=== PATIENT | female | born 1945 | race Caucasian/White ===

== ENCOUNTER 2017-09-19 17:59 | Emergency (ER) | payer BC, MEDICARE ==
[2017-09-19 18:28] VITALS: BP 162/49
--- NOTE | 2017-09-19 20:19 | EDM.PDOC ---
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 The patient reports she believes she fell Wednesday or Wednesday and has had increased pain and swelling in the right knee since that time. The patient reports that she has been walking on the knee, has not taken anything for her pain and has not been seen for x-rays at this time. The patient reports no additional injuries from the fall. The patient report she did have a valve replacement within the past year but no additional medical concerns. 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 Right Knee Pain Score (Numeric/FACES): 9 - Related Data Allergies Allergy/AdvReac Type Severity Reaction Status Date / Time ciprofloxacin Allergy Hives Verified 07/12/15 08:07 iodine Allergy Shortness Verified 07/12/15 08:07 of Breath nitrofurantoin Allergy Hives Verified 07/12/15 08:07 Penicillins Allergy Hives Verified 07/12/15 08:07 sulfamethoxazole Allergy Hives Verified 07/12/15 08:07 [From Bactrim] trimethoprim [From Bactrim] Allergy Hives Verified 07/12/15 08:07 Home Meds: Home Meds Aspirin [Adult Low Dose Aspirin EC] 1 tab PO DAILY 09/27/13 [History] Gabapentin [Neurontin] 600 mg PO TID 09/27/13 [History] Hydrochlorothiazide 25 mg PO DAILY 09/27/13 [History] Metoprolol Succinate [Toprol XL] 50 mg PO DAILY 09/27/13 [History] Multivitamin [Multi-Vitamin Daily] 1 each PO DAILY 09/27/13 [History] PARoxetine [Paxil] 20 mg PO DAILY 09/27/13 [History] Simvastatin [Zocor] 40 mg PO DAILY 09/27/13 [History] metFORMIN [metFORMIN XR] 500 mg PO DAILY 09/27/13 [History] Mirabegron [Myrbetriq] 50 mg PO DAILY 09/19/17 [History] Nitroglycerin [Nitrostat] 0.4 mg PO PRN 09/19/17 [History] Past Medical History HEENT History: Reports: Impaired Vision, Other (See Below) Other HEENT History: anisocoria; WEARS CORRECTIVE LENSES Cardiovascular History: Reports: High Cholesterol, Hypertension, Other (See Below) Other Cardiovascular History: aortic stenosis, carotoid stenosis Respiratory History: Reports: None Gastrointestinal History: Reports: Diverticulosis, Hemorrhoids Genitourinary History: Reports: Renal Calculus, UTI, Recurrent, Other (See Below ) Other Genitourinary History: nephrolithiasis; 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: Musculoskeletal History: Reports: Osteoarthritis Other Musculoskeletal History: herniated lumbar disc, lumbar spondylolysis, lumbar stenosis Neurological History: Reports: None Psychiatric History: Reports: Anxiety, Depression Endocrine/Metabolic History: Reports: Diabetes, Type II, Osteoporosis Hematologic History: Reports: Blood Transfusion(s) Immunologic History: Reports: None Oncologic (Cancer) History: Reports: None Dermatologic History: Reports: None - Past Surgical History Head Surgeries/Procedures: Reports: None Cardiovascular Surgical History: Reports: Coronary Artery Bypass Respiratory Surgical History: Reports: None GI Surgical History: Reports: Cholecystectomy, Colonoscopy, Hernia Repair/Other Female Surgical History: Reports: Breast Biopsy, Section, Hysterectomy, Tubal Ligation, Other (See Below) Neurological Surgical History: Reports: None Musculoskeletal Surgical History: Reports: Other (See Below) Other Musculoskeletal Surgeries/Procedures:: left ankle, right elbow Oncologic Surgical History: Reports: None Social & Family History - Tobacco Use Smoking Status *Q: Never Smoker Years of Tobacco use: 30 Packs/Tins Daily: 1 Month/Year Tobacco Last Used: 09/03/73 Second Hand Smoke Exposure: No - Caffeine Use Caffeine Use: Reports: Coffee - Recreational Drug Use Recreational Drug Use: No Review of Systems - Review of Systems Review Of Systems: ROS reveals no pertinent complaints other than HPI. ED EXAM, GENERAL - Physical Exam Exam: See Below Exam Limited By: No Limitations General Appearance: Alert, WD/WN, Moderate Distress Eye Exam: Bilateral Eye: EOMI, Normal Inspection, PERRL Ears: Normal External Exam, Normal Canal, Hearing Grossly Normal, Normal TMs Nose: Normal Inspection, Normal Mucosa, No Blood Throat/Mouth: Normal Inspection, Normal Lips, Normal Teeth, Normal Gums, Normal Oropharynx, Normal Voice, No Airway Compromise Head: Atraumatic, Normocephalic Neck: Normal Inspection, Supple, Non-Tender, Full Range of Motion Respiratory/Chest: No Respiratory Distress, Lungs Clear, Normal Breath Sounds, No Accessory Muscle Use, Chest Non-Tender Cardiovascular: Normal Peripheral Pulses, Regular Rate, Rhythm, No Edema, No Gallop, No JVD, No Rub, Systolic Murmur GI/Abdominal: Normal Bowel Sounds, Soft, Non-Tender, No Organomegaly, No Distention, No Abnormal Bruit, No Mass (Female) Exam: Deferred Rectal (Female) Exam: Deferred Back Exam: Normal Inspection, Full Range of Motion, NT Extremities: No Pedal Edema, Normal Capillary Refill, Leg Pain (right knee swelling), Limited Range of Motion Neurological: Alert, Oriented, CN II-XII Intact, Normal Cognition, Normal Gait, Normal Reflexes, No Motor/Sensory Deficits Psychiatric: Normal Affect, Normal Mood Skin Exam: Ecchymosis (right knee) Lymphatic: No Adenopathy Course - Vital Signs Last Recorded V/S: Last Vital Signs Temp 36.3 C 09/19/17 18:26 Pulse 67 09/19/17 18:26 Resp 16 09/19/17 18:26 BP 162/49 H 09/19/17 18:26 Pulse Ox 94 L 09/19/17 18:26 Departure - Departure Time of Disposition: 21:11 Disposition: Home, Self-Care 01 Condition: Fair Clinical Impression: Contusion of left knee Qualifiers: Encounter type: initial encounter Qualified Code(s): S80.02XA - Contusion of left knee, initial encounter - Discharge Information Instructions: Contusion Referrals: Ralph Sellers MD [Primary Care Provider] - Forms: ED Department Discharge Care Plan Goals: The patient was advised of the examination and x-ray results during the visit. The patient was given an EVA wrap for compression to her injured knee. The patient was encouraged to rest, ice and elevate her knee. If the patient has any additional symptoms or concerns, the patient should follow-up with her primary care facility or return to the emergency department.
== END 2017-09-19 21:26 | disposition home or self-care (01) ==
LOC: DL.ED 17:59
DX: S80.02XA Contusion of left knee, initial encounter (principal); E78.00 Pure hypercholesterolemia, unspecified; I10 Essential (primary) hypertension; E11.9 Type 2 diabetes mellitus without complications; Z88.1 Allergy status to other antibiotic agents; Z88.0 Allergy status to penicillin; Z88.2 Allergy status to sulfonamides; Z91.048 Other nonmedicinal substance allergy status; Z79.82 Long term (current) use of aspirin; Z79.899 Other long term (current) drug therapy; Z79.84 Long term (current) use of oral hypoglycemic drugs; W19.XXXA Unspecified fall, initial encounter
CPT/HCPCS: 73562-RT; 99283

== ENCOUNTER 2017-11-23 16:58 | Emergency (ER) | payer BC, MEDICARE ==
[2017-11-23] MEDS ORDERED: Sodium Chloride 0.9% 10 ML Syringe FLUSH PRN (17:06)
--- NOTE | 2017-11-23 17:06 | EDM.PDOC ---
ED HPI GENERAL MEDICAL PROBLEM - General Chief Complaint: Chest Pain Stated Complaint: HEART ATTACK Time Seen by Provider: 11/23/17 17:06 Source of Information: Reports: Patient, Old Records, RN, RN Notes Reviewed History Limitations: Reports: No Limitations - History of Present Illness INITIAL COMMENTS - FREE TEXT/NARRATIVE: Pt presents to ER with c/o "I want to make sure I'm not having a heart attack". Pt denies any chest pain, but states that she became concerned due to Rt arm pain that has worsened over the last couple of days. The pain began in the Rt elbow, and radiates up and down from the elbow into the forearm and up the arm to the shoulder. She denies any shortness of breath, palpitations, edema, orthopnea, neck pain, or jaw pain. Onset: Gradual Duration: Day(s): (1-2), Constant Location: Reports: Upper Extremity, Right Quality: Reports: Ache, Throbbing Severity: Moderate Improves with: Reports: Rest Worsens with: Reports: Movement (of elbow) Associated Symptoms: Reports: No Other Symptoms Right Elbow Pain Score (Numeric/FACES): 7 - Related Data Allergies Allergy/AdvReac Type Severity Reaction Status Date / Time ciprofloxacin Allergy Hives Verified 07/12/15 08:07 iodine Allergy Shortness Verified 07/12/15 08:07 of Breath nitrofurantoin Allergy Hives Verified 07/12/15 08:07 Penicillins Allergy Hives Verified 07/12/15 08:07 sulfamethoxazole Allergy Hives Verified 07/12/15 08:07 [From Bactrim] trimethoprim [From Bactrim] Allergy Hives Verified 07/12/15 08:07 Home Meds: Home Meds Aspirin [Adult Low Dose Aspirin EC] 1 tab PO DAILY 09/27/13 [History] Gabapentin [Neurontin] 600 mg PO TID 09/27/13 [History] Hydrochlorothiazide 25 mg PO DAILY 09/27/13 [History] Metoprolol Succinate [Toprol XL] 50 mg PO DAILY 09/27/13 [History] Multivitamin [Multi-Vitamin Daily] 1 each PO DAILY 09/27/13 [History] PARoxetine [Paxil] 20 mg PO DAILY 09/27/13 [History] Simvastatin [Zocor] 40 mg PO DAILY 09/27/13 [History] metFORMIN [metFORMIN XR] 500 mg PO DAILY 09/27/13 [History] Mirabegron [Myrbetriq] 50 mg PO DAILY 09/19/17 [History] Nitroglycerin [Nitrostat] 0.4 mg PO PRN 09/19/17 [History] Past Medical History HEENT History: Reports: Impaired Vision, Other (See Below) Other HEENT History: anisocoria; WEARS CORRECTIVE LENSES Cardiovascular History: Reports: High Cholesterol, Hypertension, Other (See Below) Other Cardiovascular History: aortic stenosis, carotoid stenosis Respiratory History: Reports: None Gastrointestinal History: Reports: Diverticulosis, Hemorrhoids Genitourinary History: Reports: Renal Calculus, UTI, Recurrent, Other (See Below ) Other Genitourinary History: nephrolithiasis; 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: Musculoskeletal History: Reports: Osteoarthritis Other Musculoskeletal History: herniated lumbar disc, lumbar spondylolysis, lumbar stenosis Neurological History: Reports: None Psychiatric History: Reports: Anxiety, Depression Endocrine/Metabolic History: Reports: Diabetes, Type II, Osteoporosis Hematologic History: Reports: Blood Transfusion(s) Immunologic History: Reports: None Oncologic (Cancer) History: Reports: None Dermatologic History: Reports: None - Past Surgical History Head Surgeries/Procedures: Reports: None Cardiovascular Surgical History: Reports: Coronary Artery Bypass Respiratory Surgical History: Reports: None GI Surgical History: Reports: Cholecystectomy, Colonoscopy, Hernia Repair/Other Female Surgical History: Reports: Breast Biopsy, Section, Hysterectomy, Tubal Ligation, Other (See Below) Neurological Surgical History: Reports: None Musculoskeletal Surgical History: Reports: Other (See Below) Other Musculoskeletal Surgeries/Procedures:: left ankle, right elbow Oncologic Surgical History: Reports: None Social & Family History - Family History Family Medical History: Noncontributory - Caffeine Use Caffeine Use: Reports: Coffee - Living Situation & Occupation Living situation: Reports: , with Spouse Occupation: Retired ED ROS GENERAL - Review of Systems Review Of Systems: ROS reveals no pertinent complaints other than HPI. ED EXAM, GENERAL - Physical Exam Exam: See Below Exam Limited By: No Limitations General Appearance: Alert, WD/WN, No Apparent Distress Ears: Normal External Exam, Hearing Grossly Normal Nose: Normal Inspection, Normal Mucosa, No Blood Throat/Mouth: Normal Inspection, Normal Voice, No Airway Compromise Head: Atraumatic, Normocephalic Neck: Normal Inspection, Supple, Non-Tender, Full Range of Motion Respiratory/Chest: No Respiratory Distress, Lungs Clear, Normal Breath Sounds, No Accessory Muscle Use, Chest Non-Tender Cardiovascular: Regular Rate, Rhythm, No Edema GI/Abdominal: Normal Bowel Sounds, Soft, Non-Tender, No Distention, No Abnormal Bruit. No: Guarding, Rigid, Splenomegaly (Female) Exam: Deferred Rectal (Female) Exam: Deferred Back Exam: Normal Inspection Extremities: No Pedal Edema, Normal Capillary Refill, Joint Swelling (Rt elbow, with increased warmth, no erythema, no abscess, no sign of injury, old surgical scar), Limited Range of Motion (Rt elbow due to pain). No: Leg Pain Neurological: Alert, Oriented, CN II-XII Intact, Normal Cognition, Normal Gait, No Motor/Sensory Deficits Psychiatric: Normal Affect, Normal Mood Skin Exam: Warm, Dry, Intact, Normal Color, No Rash EKG INTERPRETATION EKG Date: 11/23/17 Time: 17:05 Rhythm: Other (SR) Rate (Beats/Min): 65 [place]: LAD-Left [place] Deviation P-Wave: Present QRS: Other (LVH) ST-T: Normal QT: Normal Comparison: NA - No Prior EKG Course - Vital Signs Last Recorded V/S: Last Vital Signs Temp 36.3 C 11/23/17 17:18 Pulse 66 11/23/17 17:18 Resp 16 11/23/17 17:18 BP 157/78 H 11/23/17 17:18 Pulse Ox 94 L 11/23/17 17:18 - Orders/Labs/Meds Labs: Laboratory Tests 11/23/17 11/23/17 11/23/17 Range/Units 17:18 17:18 17:18 WBC 10.0 (5.0-10.0) 10^3/uL RBC 4.71 (4.2-5.4) 10^6/uL Hgb 13.7 D (12.0-16.0) g/dL Hct 42.0 (37.0-47.0) % MCV 89.2 (80-100) fL MCH 29.1 (27.0-34.0) pg MCHC 32.6 L (33.0-35.0) g/dL Plt Count 135 L D (150-450) 10^3/uL Neut % (Auto) 60.3 (42.2-75.2) % Lymph % (Auto) 24.8 (20.5-50.1) % Evans % (Auto) 12.7 H (2-8) % Eos % (Auto) 1.8 (1.0-3.0) % Baso % (Auto) 0.4 (0.0-1.0) % PT 10.4 (9.0-12.0) SEC INR 1.0 (0.9-1.2) APTT 23.0 (22.0-34.0) SEC Sodium 136 (135-145) mmol/L Potassium 4.8 (3.6-5.0) mmol/L Chloride 101 (101-111) mmol/L Carbon Dioxide 29.0 (21.0-31.0) mmol/L Anion Gap 10.8 BUN 24 H D (7-18) mg/dL Creatinine 0.8 (0.6-1.3) mg/dL Est Cr Clr Drug Dosing 48.67 mL/min Estimated GFR (MDRD) > 60 BUN/Creatinine Ratio 30.00 Glucose 110 H (74-105) mg/dL Uric Acid (2.6-7.2) mg/dL Calcium 9.6 (8.4-10.2) mg/dl Total Bilirubin 1.6 H (0.2-1.0) mg/dL AST 30 (10-42) IU/L ALT 22 (10-60) IU/L Alkaline Phosphatase 57 (42-121) IU/L Troponin I 0.02 (0.00-0.02) ng/ml C-Reactive Protein (0.0-1.3) mg/dL B-Natriuretic Peptide 254 H (0-100) pg/ml Total Protein 7.0 (6.7-8.2) g/dl Albumin 3.7 (3.2-5.5) g/dl Globulin 3.3 Albumin/Globulin Ratio 1.12 Amylase 94 (28-100) U/L Lipase 46 (22-51) U/L 18 18 Range/Units 17:18 17:18 WBC (5.0-10.0) 10^3/uL RBC (4.2-5.4) 10^6/uL Hgb (12.0-16.0) g/dL Hct (37.0-47.0) % MCV (80-100) fL MCH (27.0-34.0) pg MCHC (33.0-35.0) g/dL Plt Count (150-450) 10^3/uL Neut % (Auto) (42.2-75.2) % Lymph % (Auto) (20.5-50.1) % Evans % (Auto) (2-8) % Eos % (Auto) (1.0-3.0) % Baso % (Auto) (0.0-1.0) % PT (9.0-12.0) SEC INR (0.9-1.2) APTT (22.0-34.0) SEC Sodium (135-145) mmol/L Potassium (3.6-5.0) mmol/L Chloride (101-111) mmol/L Carbon Dioxide (21.0-31.0) mmol/L Anion Gap BUN (7-18) mg/dL Creatinine (0.6-1.3) mg/dL Est Cr Clr Drug Dosing mL/min Estimated GFR (MDRD) BUN/Creatinine Ratio Glucose (74-105) mg/dL Uric Acid 7.2 (2.6-7.2) mg/dL Calcium (8.4-10.2) mg/dl Total Bilirubin (0.2-1.0) mg/dL AST (10-42) IU/L ALT (10-60) IU/L Alkaline Phosphatase (42-121) IU/L Troponin I (0.00-0.02) ng/ml C-Reactive Protein 0.5 (0.0-1.3) mg/dL B-Natriuretic Peptide (0-100) pg/ml Total Protein (6.7-8.2) g/dl Albumin (3.2-5.5) g/dl Globulin Albumin/Globulin Ratio Amylase (28-100) U/L Lipase (22-51) U/L Meds: Medications Discontinued Medications Generic Name Dose Route Start Last Admin Trade Name Freq PRN Reason Stop Dose Admin Hydrocodone Bitart/Acetaminophen 1 tab 11/23/17 18:28 11/23/17 18:54 [place] 325-5 Mg PO 11/23/17 18:29 1 tab ONETIME ONE Administration Aspirin 324 mg 11/23/17 17:07 Aspirin PO 11/23/17 17:08 ONETIME ONE Sodium Chloride 10 ml 11/23/17 17:06 11/23/17 18:20 Saline Flush FLUSH 10 ml ASDIRECTED PRN Administration Keep Vein Open - Radiology Interpretation Free Text/Narrative:: CXR: No acute findings per Rad. report. Departure - Departure Time of Disposition: 18:28 Disposition: Home, Self-Care 01 Condition: Good Clinical Impression: Arthritis of right elbow Acute gout of right elbow Qualifiers: Gout etiology: unspecified cause Qualified Code(s): M10.9 - Gout, unspecified Instructions: Low-Purine Eating Plan, Gout, Heat Therapy, [id number] Referrals: Ralph Sellers MD [Primary Care Provider] - Forms: ED Department Discharge Additional Instructions: Rx: [place] 5mg/325mg Rx: Colchicine 0.6mg Use heating pad to right elbow. Follow up in clinic with your doctor in 3 days if not improving.
[2017-11-23] MEDS ORDERED: Aspirin 81 MG Tab.Chew PO ONE (17:07)
[2017-11-23 17:19] VITALS: BP 157/78
[2017-11-23 17:44] LABS: CHLORIDE,CL 101 mmol/L (101-111); SODIUM,NA 136 mmol/L (135-145)
[2017-11-23] MEDS ORDERED: Acetaminophen/HYDROcodone 325-5 MG Tab PO ONE (18:28)
--- NOTE | 2017-11-29 14:51 | EKG ---
11/23/2017 - GABRIELLE GARCIAE- TIME: 1705 hours. FINDINGS: As per my reading normal sinus rhythm. MODL /[id number]
== END 2017-11-23 18:54 | disposition home or self-care (01) ==
LOC: DL.ED 16:58
DX: M19.021 Primary osteoarthritis, right elbow (principal); M10.9 Gout, unspecified; E11.9 Type 2 diabetes mellitus without complications; F41.9 Anxiety disorder, unspecified; F32.9 Major depressive disorder, single episode, unspecified; E78.00 Pure hypercholesterolemia, unspecified; I10 Essential (primary) hypertension; I25.810 Atherosclerosis of coronary artery bypass graft(s) without angina pectoris; Z87.442 Personal history of urinary calculi; Z88.0 Allergy status to penicillin; Z88.1 Allergy status to other antibiotic agents; Z79.899 Other long term (current) drug therapy; Z79.84 Long term (current) use of oral hypoglycemic drugs; Z95.1 Presence of aortocoronary bypass graft
CPT/HCPCS: 36415; 71045; 80053; 82150; 83690; 83880; 84484; 84550; 85025; 85610; 85730; 86140; 93005; 99285; A9270; J7050

== ENCOUNTER 2019-06-04 12:20 | Emergency (ER) | payer BC, MEDICARE ==
[2019-06-04 12:34] VITALS: BP 130/108; PULSE 106
[2019-06-04 13:12] LABS: CHLORIDE,CL 104 mmol/L (101-111); SODIUM,NA 138 mmol/L (135-145)
[2019-06-04] MEDS ORDERED: Nitroglycerin 2% Oint 1 GM UD Packet TOP ONE (13:42)
--- NOTE | 2019-06-04 13:56 | EDM.PDOC ---
Scribed by Anny Vizcaino 06/04/19 [id number] for Fabiana Simons NP ED HPI GENERAL MEDICAL PROBLEM - General Chief Complaint: Cardiovascular Problem Stated Complaint: AMBULANCE Time Seen by Provider: 06/04/19 12:40 Source of Information: Reports: Patient, EMS, EMS Notes Reviewed, RN, RN Notes Reviewed History Limitations: Reports: No Limitations - History of Present Illness INITIAL COMMENTS - FREE TEXT/NARRATIVE: Patient presents to ER by [facility]. She is a 73-year-old female with shoulder pain since . Yesterday it was in her left arm, then across back and neck. Pain continues in back, neck and left shoulder. She has no pain in chest. Neck pain & back pain with moving head side to side. Patient was given nitro at 11:40 and 12:16. She also took 4 baby aspirins and pain is 8/10. No n/v/d. She has a hx of DM on metformin. She has a CAD with bypass x 2 years ago. Onset Date: 06/01/19 Duration: Constant Location: Reports: Chest Quality: Reports: Ache Severity: Moderate Improves with: Reports: None Worsens with: Reports: None Associated Symptoms: Reports: No Other Symptoms Left Shoulder Pain Score (Numeric/FACES): 5 - Related Data Allergies Allergy/AdvReac Type Severity Reaction Status Date / Time ciprofloxacin Allergy Hives Verified 07/12/15 08:07 iodine Allergy Shortness Verified 07/12/15 08:07 of Breath nitrofurantoin Allergy Hives Verified 07/12/15 08:07 Penicillins Allergy Hives Verified 07/12/15 08:07 sulfamethoxazole Allergy Hives Verified 07/12/15 08:07 [From Bactrim] trimethoprim [From Bactrim] Allergy Hives Verified 07/12/15 08:07 Home Meds: Home Meds Gabapentin [Neurontin] 300 mg PO TID 09/27/13 [History] Metoprolol Succinate [Toprol XL] 25 mg PO DAILY 09/27/13 [History] Multivitamin [Multi-Vitamin Daily] 1 each PO DAILY 09/27/13 [History] Simvastatin [Zocor] 40 mg PO DAILY 09/27/13 [History] metFORMIN [metFORMIN XR] 500 mg PO BID 09/27/13 [History] Nitroglycerin [Nitrostat] 0.4 mg PO ASDIRECTED PRN 09/19/17 [History] PARoxetine HCl [Paxil] 40 mg PO DAILY 06/04/19 [History] Past Medical History HEENT History: Reports: Impaired Vision, Other (See Below) Other HEENT History: anisocoria; WEARS CORRECTIVE LENSES Cardiovascular History: Reports: High Cholesterol, Hypertension, Other (See Below) Other Cardiovascular History: aortic stenosis, carotoid stenosis Respiratory History: Reports: None Gastrointestinal History: Reports: Diverticulosis, Hemorrhoids Genitourinary History: Reports: Renal Calculus, UTI, Recurrent, Other (See Below ) Other Genitourinary History: nephrolithiasis; OVERACTIVE 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: Reports: Musculoskeletal History: Reports: Osteoarthritis Other Musculoskeletal History: herniated lumbar disc, lumbar spondylolysis, lumbar stenosis Neurological History: Reports: None Psychiatric History: Reports: Anxiety, Depression Endocrine/Metabolic History: Reports: Diabetes, Type II, Osteoporosis Hematologic History: Reports: Blood Transfusion(s) Immunologic History: Reports: None Oncologic (Cancer) History: Reports: None Dermatologic History: Reports: None - Past Surgical History Head Surgeries/Procedures: Reports: None Cardiovascular Surgical History: Reports: Coronary Artery Bypass Respiratory Surgical History: Reports: None GI Surgical History: Reports: Cholecystectomy, Colonoscopy, Hernia Repair/Other Female Surgical History: Reports: Breast Biopsy, Section, Hysterectomy, Tubal Ligation, Other (See Below) Neurological Surgical History: Reports: None Musculoskeletal Surgical History: Reports: Other (See Below) Other Musculoskeletal Surgeries/Procedures:: left ankle, right elbow Oncologic Surgical History: Reports: None Social & Family History - Family History Family Medical History: Noncontributory - Tobacco Use Smoking Status *Q: Never Smoker Second Hand Smoke Exposure: No - Caffeine Use Caffeine Use: Reports: Coffee - Recreational Drug Use Recreational Drug Use: No - Living Situation & Occupation Living situation: Reports: , with Spouse Occupation: Retired ED ROS GENERAL - Review of Systems Review Of Systems: Comprehensive ROS is negative, except as noted in HPI. ED EXAM, GENERAL - Physical Exam Exam: See Below Exam Limited By: No Limitations General Appearance: Alert, WD/WN, No Apparent Distress Eye Exam: Bilateral Eye: EOMI, Normal Inspection, PERRL Ears: Normal External Exam, Normal Canal, Hearing Grossly Normal, Normal TMs Nose: Normal Inspection, Normal Mucosa, No Blood Throat/Mouth: Normal Inspection, Normal Lips, Normal Teeth, Normal Gums, Normal Oropharynx, Normal Voice, No Airway Compromise Head: Atraumatic, Normocephalic Neck: Normal Inspection, Supple, Non-Tender, Full Range of Motion Respiratory/Chest: No Respiratory Distress, Lungs Clear, Normal Breath Sounds, No Accessory Muscle Use, Chest Non-Tender Cardiovascular: Other (irregular. EKG showed atrial fibrillation, ? posterior infarct.) Peripheral Pulses: 2+: Radial (L), Radial (R) GI/Abdominal: Normal Bowel Sounds, Soft, Non-Tender, No Organomegaly, No Distention, No Abnormal Bruit, No Mass (Female) Exam: Deferred Rectal (Female) Exam: Deferred Back Exam: Normal Inspection, Full Range of Motion, Other (Moving right arm over head; causes discomfort in the back and left neck. ) Extremities: Normal Inspection, Normal Range of Motion, Non-Tender, Normal Capillary Refill, No Pedal Edema Neurological: Alert, Oriented, CN II-XII Intact, Normal Cognition, Normal Gait, Normal Reflexes, No Motor/Sensory Deficits, Other Psychiatric: Normal Affect, Normal Mood Skin Exam: Warm, Dry, Intact, Normal Color, No Rash Lymphatic: No Adenopathy EKG INTERPRETATION EKG Date: 06/04/19 Time: 12:38 Rhythm: A-Fib (V-rate 67-135) Rate (Beats/Min): 100 EKG Interpretation Comments: Probable posterior infarct. Borderline T abnormalities, inferior leads. Baseline wander in lead (s) U, AVL, V3 and V4. Course - Vital Signs Last Recorded V/S: Last Vital Signs Temp 37.3 C 06/04/19 12:24 Pulse 106 H 06/04/19 12:24 Resp 20 06/04/19 12:24 BP 130/108 H 06/04/19 12:24 Pulse Ox 97 06/04/19 12:24 - Orders/Labs/Meds Orders: Active Orders 24 hr Category Date Time Status EKG Documentation Completion [RC] STAT Care 06/04/19 12:36 Active Chest 1V Frontal [CR] Urgent Exams 06/04/19 12:36 Taken Labs: Laboratory Tests 06/04/19 06/04/19 Range/Units 12:47 12:47 WBC 9.1 (5.0-10.0) 10^3/uL RBC 4.64 (4.2-5.4) 10^6/uL Hgb 13.4 (12.0-16.0) g/dL Hct 40.7 (37.0-47.0) % MCV 87.7 (80-100) fL MCH 28.9 (27.0-34.0) pg MCHC 32.9 L (33.0-35.0) g/dL Plt Count 205 (150-450) 10^3/uL Neut % (Auto) 64.5 (42.2-75.2) % Lymph % (Auto) 22.5 (20.5-50.1) % [place] % (Auto) 10.7 H (2-8) % Eos % (Auto) 2.0 (1.0-3.0) % Baso % (Auto) 0.3 (0.0-1.0) % Sodium 138 (135-145) mmol/L Potassium 4.0 (3.6-5.0) mmol/L Chloride 104 (101-111) mmol/L Carbon Dioxide 26.0 (21.0-31.0) mmol/L Anion Gap 12.0 BUN 17 (7-18) mg/dL Creatinine 0.8 (0.6-1.3) mg/dL Est Cr Clr Drug Dosing TNP Estimated GFR (MDRD) > 60 BUN/Creatinine Ratio 21.25 Glucose 177 H (74-105) mg/dL Calcium 9.4 (8.4-10.2) mg/dl Total Bilirubin 1.7 H (0.2-1.0) mg/dL AST 14 (10-42) IU/L ALT 11 (10-60) IU/L Alkaline Phosphatase 62 (42-121) IU/L Troponin I 0.12 H* (0.00-0.02) ng/ml Total Protein 6.6 L (6.7-8.2) g/dl Albumin 3.3 (3.2-5.5) g/dl Globulin 3.3 Albumin/Globulin Ratio 1.00 - Radiology Interpretation Free Text/Narrative:: Presents with Left shoulder neck and back pain across shoulders progressing over last 3 days; no n/v/d & no resp illness or sOB. Nitro x2 given in ambulance. No CP. 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 She has a CAD history with bipass 2 years ago. No issues since. History of afib in the past; She is presently afib rate [address] elevation/no CP. Last eKG 1 year ago is NSR. She has received 4 baby aspirin. Discussed EKG x2 and elevated troponin of 0.12. Will transport to [facility] Dr. Dia ground ambulance. She is stable at this time. I did place nitro past 1 inch on chest with BP 150/100. Departure - Departure Time of Disposition: 13:52 Disposition: DC/Tfer to Acute Hospital 02 Reason for Transfer *Q: Other (Hx of CAD with elevated troponin. Dr. Dia accepting. Recieved aspirin. Nitro paste for transfer) Condition: Fair Clinical Impression: ACS (acute coronary syndrome), Elevated troponin Hypertension Qualifiers: Hypertension type: essential hypertension Qualified Code(s): I10 - Essential ( primary) hypertension Forms: ED Department Discharge, Interfacility Transfer EMTALA Sepsis Event Note - Evaluation Sepsis Screening Result: No Definite Risk - Focused Exam Vital Signs: Vital Signs Temp Pulse Resp BP Pulse Ox 06/04/19 12:24 37.3 C 106 H 20 130/108 H 97 Date Exam was Performed: 06/04/19 Time Exam was Performed: 13:40 - My Orders Last 24 Hours: My Active Orders 06/04/19 12:36 EKG Documentation Completion [RC] STAT Chest 1V Frontal [CR] Urgent - Assessment/Plan Last 24 Hours: My Active Orders 06/04/19 12:36 EKG Documentation Completion [RC] STAT Chest 1V Frontal [CR] Urgent I have read and agree with the documentation that has been completed regarding this visit. By signing this record, I attest that the documentation was completed in my physical presence and is an accurate record of the encounter.
== END 2019-06-04 13:58 ==
LOC: DL.ED 12:20
DX: I24.9 Acute ischemic heart disease, unspecified (principal); R79.89 Other specified abnormal findings of blood chemistry; I10 Essential (primary) hypertension; E78.00 Pure hypercholesterolemia, unspecified; E11.9 Type 2 diabetes mellitus without complications; F41.9 Anxiety disorder, unspecified; F32.9 Major depressive disorder, single episode, unspecified; Z79.84 Long term (current) use of oral hypoglycemic drugs; Z79.899 Other long term (current) drug therapy; Z88.0 Allergy status to penicillin; Z88.1 Allergy status to other antibiotic agents; Z88.8 Allergy status to other drugs, medicaments and biological substances; Z91.09 Other allergy status, other than to drugs and biological substances
CPT/HCPCS: 36415; 71045; 80053; 84484; 85025; 93005; 99285; A9270

== ENCOUNTER 2021-09-28 15:52 | Emergency (ER) | payer BC, MEDICARE ==
[2021-09-28 16:02] VITALS: BP 172/125
[2021-09-28] MEDS ORDERED: Oxymetazoline 0.05% Nasal Spray 30 ML Bottle NAS ONE (16:17)
[2021-09-28] MEDS ORDERED: Lidocaine 1% with EPINEPHrine 1:100,000 20 ML MDV ONE (16:18)
[2021-09-28] MEDS ORDERED: Ondansetron 4 MG/2 ML SDV IM ONE (17:24)
[2021-09-28] MEDS ORDERED: Sodium Chloride 0.9% 10 ML Syringe FLUSH PRN (17:31)
[2021-09-28] MEDS ORDERED: Sodium Chloride 0.9% 500 ML IV SCH (17:45)
[2021-09-28 19:30] VITALS: PULSE 78
== END 2021-09-28 19:10 | disposition home or self-care (01) ==
LOC: DL.ED 15:52
DX: R04.0 Epistaxis (principal); E78.00 Pure hypercholesterolemia, unspecified; I10 Essential (primary) hypertension; E11.9 Type 2 diabetes mellitus without complications; Z79.84 Long term (current) use of oral hypoglycemic drugs; Z79.899 Other long term (current) drug therapy; Z79.82 Long term (current) use of aspirin; Z88.0 Allergy status to penicillin; Z88.2 Allergy status to sulfonamides; Z88.8 Allergy status to other drugs, medicaments and biological substances
CPT/HCPCS: 36415; 85025; 85610; 85730; 96372; 99284; A9270; J2405; J3490; J7040

== ENCOUNTER 2021-11-23 22:18 | Inpatient (IN) | payer MEDICARE, OTHER ==
[2021-11-24] MEDS ORDERED: cefTRIAXone 1 GM in Sodium Chloride 0.9% 50 ML IV ONE (00:07)
[2021-11-24 00:19] LABS: ANION GAP 12.4 mEq/L (7-13); CHLORIDE,CL 99 mmol/L (98-107); SODIUM,NA 138 mmol/L (136-145)
[2021-11-24 00:29] LABS: ESTIMATED GFR 35
[2021-11-24] MEDS ORDERED: Magnesium Sulfate/Water 2 GM in Premix Bag 1 BAG IV ONE (01:36)
[2021-11-24] MEDS ORDERED: methylPREDNISolone Sodium Succinate 125 MG/2 ML SDV IVPUSH ONE (01:50)
[2021-11-24] MEDS ORDERED: Acetaminophen 325 MG Tab PO PRN (06:35)
[2021-11-24] MEDS ORDERED: Acetaminophen/HYDROcodone 325-5 MG Tab PO PRN (06:35)
[2021-11-24] MEDS: Docusate Sodium 100 MG Cap PO PRN (08:58)
[2021-11-24] MEDS: predniSONE 10 MG Tab PO SCH (08:58)
[2021-11-24] MEDS: Metoprolol Tartrate 25 MG Tab PO SCH ×2 (10:03→21:31)
[2021-11-24] MEDS: Colchicine 0.6 MG Tab PO SCH ×2 (10:03→21:31)
[2021-11-24] MEDS: Rivaroxaban 10 MG Tab PO SCH (12:16)
[2021-11-24] MEDS ORDERED: Calcium Carbonate 500 MG Tab.Chew PO PRN (12:31)
[2021-11-24] MEDS: Gabapentin 300 MG Cap PO SCH ×2 (13:28→21:31)
[2021-11-24] MEDS ORDERED: traZODone 50 MG Tab PO PRN (21:00)
[2021-11-24] MEDS: Simvastatin 40 MG Tab PO SCH (21:31)
[2021-11-25] MEDS: Levothyroxine 25 MCG Tab PO SCH (05:50)
[2021-11-25 07:03] LABS: ANION GAP 9.7 mEq/L (7-13)
[2021-11-25] MEDS: Multivitamin Tab PO SCH (08:40)
[2021-11-25] MEDS: Gabapentin 300 MG Cap PO SCH ×3 (08:40→20:15)
[2021-11-25] MEDS: Bumetanide 1 MG Tab PO SCH (08:41)
[2021-11-25] MEDS: Aspirin 81 MG Tab.EC PO SCH (08:41)
[2021-11-25] MEDS: Colchicine 0.6 MG Tab PO SCH ×2 (08:41→20:15)
[2021-11-25] MEDS: Docusate Sodium 100 MG Cap PO PRN ×2 (08:41→20:15)
[2021-11-25] MEDS: predniSONE 10 MG Tab PO SCH (08:43)
[2021-11-25] MEDS: Metoprolol Tartrate 25 MG Tab PO SCH ×2 (08:44→20:15)
[2021-11-25] MEDS: Rivaroxaban 10 MG Tab PO SCH (08:44)
[2021-11-25] MEDS: PARoxetine 20 MG Tab PO SCH (08:44)
[2021-11-25] MEDS ORDERED: Aluminum Hydroxide/Magnesium Hydroxide/Simethicone Susp 30 ML Cup PO PRN (09:01)
[2021-11-25] MEDS: Simvastatin 40 MG Tab PO SCH (20:30)
[2021-11-25] MEDS ORDERED: Magnesium Hydroxide 400 MG/5 ML Susp 30 ML Cup PO PRN (22:32)
[2021-11-26] MEDS: Levothyroxine 25 MCG Tab PO SCH (05:11)
[2021-11-26] MEDS ORDERED: Pantoprazole 40 MG Tab.CR PO SCH (06:00)
[2021-11-26] MEDS: predniSONE 10 MG Tab PO SCH (09:53)
[2021-11-26] MEDS: Aspirin 81 MG Tab.EC PO SCH (09:54)
[2021-11-26] MEDS: Bumetanide 1 MG Tab PO SCH (09:54)
[2021-11-26] MEDS: Colchicine 0.6 MG Tab PO SCH (09:54)
[2021-11-26] MEDS: Metoprolol Tartrate 25 MG Tab PO SCH (09:55)
[2021-11-26] MEDS: Rivaroxaban 10 MG Tab PO SCH (09:56)
[2021-11-26] MEDS: Multivitamin Tab PO SCH (09:56)
[2021-11-26] MEDS: PARoxetine 20 MG Tab PO SCH (09:56)
[2021-11-26] MEDS: Gabapentin 300 MG Cap PO SCH ×2 (09:56→13:59)
[2021-11-26] MEDS ORDERED: Calcium Carbonate 500 MG Tab.Chew PO PRN (13:40)
[2021-11-26 16:45] VITALS: BP 126/87; PULSE 96
== END 2021-11-26 18:34 | disposition home or self-care (01) | DRG 603 ==
LOC: DL.ED 22:18 → DL.MS 11-24 02:35 → OBSVTOIN 11-24 08:54 → INTOOBSV 11-24 08:54 → OBSVTOIN 11-25 08:54 → UNDODISIN 11-26 18:34
PROVIDERS: ADMIT Internal Medicine; ATTEND Internal Medicine
DX: L03.116 Cellulitis of left lower limb (principal); E87.0 Hyperosmolality and hypernatremia; R60.9 Edema, unspecified; E87.2 Acidosis; E80.6 Other disorders of bilirubin metabolism; R78.81 Bacteremia; I10 Essential (primary) hypertension; M10.9 Gout, unspecified; L03.115 Cellulitis of right lower limb; H54.7 Unspecified visual loss; E78.00 Pure hypercholesterolemia, unspecified; I35.0 Nonrheumatic aortic (valve) stenosis; Z88.0 Allergy status to penicillin; K57.90 Diverticulosis of intestine, part unspecified, without perforation or abscess without bleeding; Z88.8 Allergy status to other drugs, medicaments and biological substances; Z87.440 Personal history of urinary (tract) infections; N32.81 Overactive bladder; M19.90 Unspecified osteoarthritis, unspecified site; F41.9 Anxiety disorder, unspecified; R26.81 Unsteadiness on feet; I25.10 Atherosclerotic heart disease of native coronary artery without angina pectoris; E03.9 Hypothyroidism, unspecified; Z20.822 Contact with and (suspected) exposure to COVID-19; F32.A Depression, unspecified; R79.1 Abnormal coagulation profile; M47.816 Spondylosis without myelopathy or radiculopathy, lumbar region; M48.061 Spinal stenosis, lumbar region without neurogenic claudication; E11.9 Type 2 diabetes mellitus without complications; M81.0 Age-related osteoporosis without current pathological fracture; Z95.1 Presence of aortocoronary bypass graft; Z79.890 Hormone replacement therapy; Z79.899 Other long term (current) drug therapy; Z79.82 Long term (current) use of aspirin; Z79.52 Long term (current) use of systemic steroids; Z79.84 Long term (current) use of oral hypoglycemic drugs; Z88.1 Allergy status to other antibiotic agents; Z91.09 Other allergy status, other than to drugs and biological substances; Z80.0 Family history of malignant neoplasm of digestive organs; Z88.2 Allergy status to sulfonamides; Z79.01 Long term (current) use of anticoagulants; Z95.2 Presence of prosthetic heart valve; Z90.710 Acquired absence of both cervix and uterus; Z98.51 Tubal ligation status; Z95.5 Presence of coronary angioplasty implant and graft; E83.42 Hypomagnesemia; I48.91 Unspecified atrial fibrillation; K59.00 Constipation, unspecified; Z87.442 Personal history of urinary calculi; I12.9 Hypertensive chronic kidney disease with stage 1 through stage 4 chronic kidney disease, or unspecified chronic kidney disease; N18.9 Chronic kidney disease, unspecified; B95.4 Other streptococcus as the cause of diseases classified elsewhere
CPT/HCPCS: 36415; 71045; 73120-RT; 76700; 80053; 82947; 83605; 83735; 83880; 84484; 84550; 85025; 85027; 85610; 86140; 87040; 87077; 93005; 93010; 96365; 96366; 96367; 96375; 97161-GP; 97165-GO; 99219; 99232; 99239; 99284; 99285-25; A9270-GY; G0378; J0696; J2930; J3370; J3475; J7050; J7512; U0002

== ENCOUNTER 2022-01-02 19:00 | Emergency (ER) | payer MEDICARE, OTHER, BC ==
[2022-01-02 21:00] LABS: ANION GAP 16.7 mEq/L (7-13)
[2022-01-02] MEDS ORDERED: Sodium Chloride 0.9% 1,000 ML IV ONE (22:05)
[2022-01-02 22:36] VITALS: BP 104/56; PULSE 92
== END 2022-01-02 22:48 ==
LOC: DL.ED 19:00
DX: K92.2 Gastrointestinal hemorrhage, unspecified (principal); I10 Essential (primary) hypertension; E11.9 Type 2 diabetes mellitus without complications; Z88.1 Allergy status to other antibiotic agents; Z91.041 Radiographic dye allergy status; Z88.0 Allergy status to penicillin; Z88.2 Allergy status to sulfonamides; Z79.899 Other long term (current) drug therapy; Z79.82 Long term (current) use of aspirin; Z79.84 Long term (current) use of oral hypoglycemic drugs; Z90.49 Acquired absence of other specified parts of digestive tract; Z90.710 Acquired absence of both cervix and uterus; Z20.822 Contact with and (suspected) exposure to COVID-19
CPT/HCPCS: 36415; 36430; 71101; 73562; 80053; 81001; 82272; 83605; 83735; 84484; 85025; 85610; 86850; 86900; 86901; 86920; 86922; 87040; 93005; 99285; J7030; P9016; U0002